=== PATIENT | female | born 1990 | race Caucasian/White ===

== ENCOUNTER 2016-07-08 16:18 | Emergency (ER) | payer SELFPAY ==
[~2016-07-08] VITALS: Ht 175.3 cm; Wt 60.0 kg
[2016-07-08 16:31] VITALS: BP 121/75
[2016-07-08] MEDS ORDERED: HYDROcodone/APAP 5 MG/325 MG (NORCO) TAB PO ONE (17:20)
[2016-07-08] MEDS ORDERED: AMOX500C5 PO (17:24)
[2016-07-08] MEDS ORDERED: HYDR-33 PO (17:25)
--- NOTE | 2016-07-08 17:39 | NUR ---
PAIN MED REASSESS ATTEMPTED BUT NOT ALLOWED TIME FRAME "DOESN'T MEET MINIMUM" SO REASSESS NOT DONE D/T PT DISMISSED JUST FEW MINUTES AFTER PO MED GIVEN.
== END 2016-07-08 17:39 | disposition home or self-care (01) ==
LOC: ED 16:21
DX: K08.89 Other specified disorders of teeth and supporting structures (principal)
CPT/HCPCS: 99282; 99283